=== PATIENT | male | born 1995 | race Caucasian/White ===

== ENCOUNTER 2016-10-21 20:40 | Emergency (ER) | payer BC ==
[~2016-10-21] VITALS: Ht 172.7 cm; Wt 59.0 kg
--- NOTE | 2016-10-21 20:45 | NUR ---
to bed 1 bib paramedics c/o headache since 0400 am. pt aaox4 no acute distress noted, resp even and unlabored. pt aaox4 no acute distress noted, resp even and unlabored. 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 pt denies head injury.
[2016-10-21] MEDS ORDERED: ONDANSETRON HCL/PF 4 MG/2 ML VIAL ONE (20:50)
[2016-10-21] MEDS ORDERED: ACETAMINOPHEN ES 500 MG TABLET ONE (20:50)
[2016-10-21] MEDS ORDERED: IV NS 0.9% 1,000 ML ONE (20:50)
[2016-10-21] MEDS ORDERED: IV SET PRIMARY 1 EA INFUS.SET MC ONE (20:50)
--- NOTE | 2016-10-21 20:58 | NUR ---
pt medicated by rn per er md order.
[2016-10-21] MEDS ORDERED: ACETAMINOPHEN ES 500 MG TABLET PO ONE (21:00)
[2016-10-21] MEDS ORDERED: ONDANSETRON HCL/PF 4 MG/2 ML VIAL IVP ONE (21:00)
[2016-10-21] MEDS ORDERED: IV NS 0.9% 1,000 ML BAG IV ONE (21:00)
[2016-10-21 21:04] LABS: BASOPHILS # (AUTO) 0.1 /CMM (0.0-0.2); BASOPHILS % (AUTO) 1.4 % (0.0-2.0); EOSINOPHILS # (AUTO) 0.1 /CMM (0.0-0.7); LYMPHOCYTES # (AUTO) 1.3 /CMM (0.8-4.8)
[2016-10-21 21:06] LABS: CALCIUM, SERUM 9.1 mg/dL (8.5-10.1); POTASSIUM 3.7 mmol/L (3.5-5.1)
[2016-10-21 21:08] LABS: EOSINOPHILS % (AUTO) 1.2 % (0.0-6.0); HEMATOCRIT 41 % (39-51); HEMOGLOBIN 14.3 g/dL (13.5-17.5); LYMPHOCYTES % (AUTO) 20.8 % (20.0-44.0); MEAN CORPUSCULAR HEMOGLOBIN 30 PG (26.0-33.0); MEAN CORPUSCULAR HGB CONC 35 g/dl (31.0-36.0); MEAN CORPUSCULAR VOLUME 86 fL (80-96); MONOCYTES # (AUTO) 0.5 /CMM (0.1-1.30); MONOCYTES % (AUTO) 8.8 % (2.0-12.0); NEUTROPHILS # (AUTO) 4.1 /CMM (1.8-8.9); NEUTROPHILS % (AUTO) 67.8 % (43.0-81.0); PLATELET COUNT (AUTO) 225 /CMM (150-450); RDW COEFFICIENT OF VARIATION 11.2 (11.5-15.0); RED BLOOD CELL COUNT(AUTO) 4.78 MIL/uL (4.5-6.0); WHITE BLOOD COUNT (AUTO) 6.1 K/uL (4.3-11.0)
--- NOTE | 2016-10-21 21:20 | NUR ---
patricia mendez at bedside to re-eval pt.
[2016-10-21] MEDS ORDERED: DEXAMETHASONE SOD PHOSPHATE 10 MG in IV D5W 50 ML IV ONE (21:30)
[2016-10-21] MEDS ORDERED: DEXAMETHASONE SOD PHOSPHATE 10 MG/ML VIAL ONE (21:33)
--- NOTE | 2016-10-21 21:40 | NUR ---
medicated pt as ordered; 10 mg decadron iv push per order DENISSE MIR DO
[2016-10-21 21:43] VITALS: BP 119/68
--- NOTE | 2016-10-21 21:59 | NUR ---
IV removed. Catheter intact and site benign. Pressure and 4x4 applied to site. No bleeding noted. Patient discharged to home in stable condition. Written and verbal after care instructions given. Patient verbalizes understanding of instruction. ambulatory with a steady gait noted. pt aaox4 no acute distress noted, resp even and unlabored.
== END 2016-10-21 22:00 | disposition home or self-care (01) ==
LOC: ER 20:42
DX: R51 Headache (principal); B34.9 Viral infection, unspecified
CPT/HCPCS: 36415; 80048-TC; 82550-TC; 85025-TC; 87400; A4606; J1100; J2405; J7030; Z7610